=== PATIENT | male | born 1995 | race Two or more races ===

== ENCOUNTER 2018-03-17 08:43 | Day surgery (SDC) | payer OTHER ==
[~2018-03-17] VITALS: Ht 175.3 cm; Wt 71.7 kg
[2018-03-17] VITALS (14 sets, daily range): BP systolic 98–130; BP diastolic 43–77
--- NOTE | 2018-03-17 07:12 | Pre-Procedure Note/Attestation ---
Pre-Procedure Note/Attestation Complete Prior to Procedure Planned Procedure: left Procedure Narrative: knee arthroscopy,possible menisectomy Indications for Procedure Pre-Operative Diagnosis: left knee internal derangement Attestation I attest that I discussed the nature of the procedure; its benefits; risks and complications; and alternatives (and the risks and benefits of such alternatives ), prior to the procedure, with the patient (or the patient's legal collections representative). I attest that, if there was a reasonable possibility of needing a blood transfusion, the patient (or the patient's legal collections representative) was given the [facility] standardized written summary, pursuant to the [place] Blood Safety Act ([place] Health and Safety Code # 1645, as amended). I attest that I re-evaluated the patient just prior to the surgery and that there has been no change in the patient's H&P, except as documented below: Frank Canales MD Mar 17, 2018 07:12
--- NOTE | 2018-03-17 07:12 | Operative Note - PDOC ---
Operative Note Operative Note Pre-op Diagnosis: left knee internal derangement Procedure: see op report Post-op Diagnosis: same as pre-op plus Operative Findings: consistent w/pre-op dx studies Anesthesia: MAC Specimen: none Complications: none Condition: stable Estimated Blood Loss: none Implant(s) used?: No Frank Canales MD Mar 17, 2018 07:12
[~2018-03-17 08:43] MED LIST: D5 1/2NS 1,000 ML IV SCH; HYDROmorphone 1mg/ml Carpuject SUBQ PRN; NKM; Norco 5mg/325mg tab ORAL PRN; Tylenol #3 tab (300mg/30mg) ORAL PRN; ceFAZolin 1gm in D5W 55ml IVP ONE; celeBREX 200mg Cap **SURGERY PATIENTS ONLY ORAL ONE; oxyCONTIN 20mg tab ORAL ONE
[2018-03-17] MEDS ORDERED: oxyCONTIN 20mg tab ORAL ONE (09:35)
[2018-03-17] MEDS ORDERED: celeBREX 200mg Cap **SURGERY PATIENTS ONLY ORAL ONE (09:35)
[2018-03-17] MEDS ORDERED: Morphine Sulfate PF 10 ML ONE (09:42)
[2018-03-17] MEDS ORDERED: Lidocaine 1% 10mg/ml/Epi 0.005mg/ml 30ml vial INJ ONE (09:43)
[2018-03-17] MEDS ORDERED: Kenalog-40 1ml Vial ONE (09:43)
[2018-03-17] MEDS ORDERED: Ketorolac 30mg Inj ONE (09:43)
[2018-03-17] MEDS ORDERED: Bupivacaine 0.5% Inj 30 ml vial INJ ONE (09:43)
[2018-03-17] MEDS ORDERED: Bupivacaine w/Epi 0.25% 30ml Vial INJ ONE (09:43)
[2018-03-17] MEDS ORDERED: Alfentanil 2ml Inj ONE (09:47)
[2018-03-17] MEDS ORDERED: Dexamethasone 4mg/ml vial ONE (09:48)
[2018-03-17] MEDS ORDERED: Propofol 200mg/20ml IV ONE (09:48)
[2018-03-17] MEDS ORDERED: Lidocaine 1% MPF 10mg/ml 5ml ONE (09:48)
[2018-03-17] MEDS ORDERED: Sodium Chloride 10ml vial INJ ONE (09:48)
--- NOTE | 2018-03-17 10:09 | Anethesia Preoperative Eval ---
Anesthesia Pre-op PMH/ROS General Date of Evaluation: Mar 17, 2018 Time of Evaluation: 09:56 Anesthesiologist: Clive ASA Score: ASA 1 Mallampati Score Class I : Soft palate, uvula, fauces, pillars visible Class II: Soft palate, uvula, fauces visible Class III: Soft palate, base of uvula visible Class IV: Only hard plate visible Mallampati Classification: Class I Surgeon: Parker Diagnosis: L Knee Pain Surgical Procedure: L Knee Arthroscopy Anesthesia History: none Family History: no anesthesia problems Allergies: Coded Allergies: No Known Allergies (Unverified , 03/16/18) Medications: see eMAR Anesthesia Pre-op Phys. Exam Physician Exam Last Vital Signs Date Time Temp Pulse Resp B/P (MAP) Pulse Ox O2 Delivery O2 Flow Rate FiO2 03/17/18 09:44 98.1 70 18 130/75 (93) 98 98.1 03/17/18 09:31 Room Air Constitutional: NAD Neurologic: CN 2-12 intact Cardiovascular: RRR Respiratory: CTA Gastrointestinal: S/NT/ND Airway Exam Mallampati Score: Class I MO: full ROM: full Teeth: intact Anesthesia Pre-op A/P Risk Assessment & Plan Assessment: ASA 1 Plan: GA, SED Status Change Before Surgery: No Pre-Antibiotics Dru Gram Ancef IV Given Within 1 Hr of Incision: Yes Time Given: 10:11 James Duffy MD Mar 17, 2018 10:09
--- NOTE | 2018-03-17 10:10 | Immediate Post-Op Evaluation ---
Immediate Post-Op Evalulation Immediate Post-Op Evalulation Procedure: L Knee Arthroscopy Date of Evaluation: Mar 17, 2018 Time of Evaluation: 11:34 IV Fluids: 700 LR Blood Products: 0 Estimated Blood Loss: 4 Urinary Output: 0 Blood Pressure Systolic: 98 Blood Pressure Diastolic: 43 Pulse Rate: 59 Respiratory Rate: 16 O2 Sat by Pulse Oximetry: 100 Temperature (Fahrenheit): 99.5 Pain Score (1-10): 2 Nausea: No Vomiting: No Complications 0 Patient Status: awake, reacts, patent, extubated, none Hydration Status: adequate Dru Gram Ancef IV Given Within 1 Hr of Incision: Yes Time Given: 10:11 James Duffy MD Mar 17, 2018 10:10
--- NOTE | 2018-03-17 10:28 | 48 Hour Post Anesthesia Eval ---
Post Anesthesia Evaluation Procedure: L Knee Arthroscopy Date of Evaluation: Mar 17, 2018 Time of Evaluation: 13:43 Blood Pressure Systolic: 103 0: 72 Pulse Rate: 63 Respiratory Rate: 18 Temperature (Fahrenheit): 98.6 O2 Sat by Pulse Oximetry: 100 Airway: patent Nausea: No Vomiting: No Pain Intensity: 2 Hydration Status: adequate Cardiopulmonary Status: Stable Mental Status/LOC: patient returned to baseline Follow-up Care/Observations: 0 Post-Anesthesia Complications: 0 Follow-up care needed: ready to discharge James Duffy MD Mar 17, 2018 10:28
[2018-03-17] MEDS ORDERED: Duramorph PF 10mg/10ml amp IV ONE (10:52)
--- NOTE | 2018-03-17 21:15 | Operative Note - Dictated ---
DATE OF OPERATION: 03/17/2018 PREOPERATIVE DIAGNOSIS: Left knee internal derangement. POSTOPERATIVE DIAGNOSIS: Hypertrophic synovial tissue/fat pad in medial, lateral, and patellofemoral compartment. Procedure: 1. Left knee diagnostic arthroscopy 2. Left knee synovectomy/excision of fat pad medial, lateral, and patellafemoral compartment SURGEON: Frank Canales M.D. ANESTHESIA: MAC with local. INDICATION FOR PROCEDURE: The patient is a pleasant gentleman, who has had progressive left knee pain. He had MRI, which showed meniscal degeneration of the medial meniscus and had continued pain. He elected to undergo diagnostic arthroscopy, possible synovectomy, excision of fat pad with possible medial meniscectomy. Risks, limitations, expectations, and complications were discussed in detail. All questions were addressed. DESCRIPTION OF PROCEDURE: After informed consent was obtained, the patient was brought to the operating room. The patient was placed supine under monitored anesthesia control. Left leg was prepped and draped in sterile manner. Time-out was performed. Inferolateral stab incision was made. Trocar was introduced into the inferolateral patellofemoral compartment. There was significant resistemt placing the trocar into the knee . Once that was done, the camera was placed in the patellofemoral compartment. No significant chondral damage in the patellofemoral compartment. There was hypertrophic fat pad/synovial tissue. The medial working portal was established. The medial compartment was entered. The meniscus particularly the posterior horn was probed and noted to be intact. At this point, the shaver was then placed to perform excision of the fat pad and synovial tissue in the anterior compartment, medial compartment, intercondylar notch, and lateral compartment. The ACL was probed and noted to be intact. Lateral compartment was entered and was free of meniscal or chondral damage. At this point, the instruments were removed. Portal sites were then closed with 3-0 Monocryl sutures. Steri-Strips and a sterile dressing were applied. The patient was awoken and taken to recovery room with stable vital signs. ESTIMATED BLOOD LOSS: None. COMPLICATIONS: None. SPECIMENS: None. IMPLANTS: None. Frank Canales M.D. DR: SCAR JOB#: [id number] CC: VITO
== END 2018-03-17 14:00 | disposition home or self-care (01) ==
LOC: SUR 08:43
DX: M67.262 Synovial hypertrophy, not elsewhere classified, left lower leg (principal); M79.4 Hypertrophy of (infrapatellar) fat pad
CPT/HCPCS: 29876; J0690; J1100; J1885; J2250; J2274; J2405; J2704; J3301; J3490; 94003; 94150